=== PATIENT | female | born 1990 ===

== ENCOUNTER → 2020-10-18 | Outpatient (CLI) | payer OTHER ==
[~2020-10-18] MED LIST: MEDR150I
[2020-10-21 15:07] LABS: HPV 16 Negative (Negative); HPV 18 Negative (Negative); HPV OTHER HR TYPES Negative (Negative)
== END | disposition home or self-care (01) ==
LOC: LAB SHORT 16:00
PROVIDERS: Student in an Organized Health Care Education/Training Program
DX: Z12.4 Encounter for screening for malignant neoplasm of cervix (principal)
CPT/HCPCS: 87624; G0145

== ENCOUNTER 2023-02-02 11:29 | Inpatient (IN) | payer OTHER ==
[~2023-02-02] VITALS: Ht 160 cm; Wt 69.7 kg
[2023-02-02] VITALS (9 sets, daily range): BP systolic 70–103; BP diastolic 31–82
[~2023-02-02 11:29] MED LIST changes: +LISI5 PO
[2023-02-02 11:50] LABS: Hematocrit 37.1 % (33.0-51.0); Hemoglobin 12.3 g/dL (11.5-16.0); Mean Corpuscular HGB 30.1 pg (26.0-34.0); Mean Corpuscular HGB Conc 33.2 g/dL (31.5-36.5); Mean Corpuscular Volume 91 fL (80-100); Mean Platelet Volume 8.8 fL (9.1-12.4); Platelet Count 768 K/mm3 (150-400); RDW Coefficient Variation 13.6 % (11.7-14.2); RDW Standard Deviation 46.1 fL (35.1-46.3); Red Blood Cell Count 4.08 M/mm3 (3.80-5.20)
[2023-02-02 12:28] LABS: Albumin, Blood 1.8 g/dL (3.4-5.0); Albumin/Globulin Ratio 0.3 (0.8-1.8); Bilirubin, Total 0.3 mg/dL (0.1-1.0); Bun/Creatinine Ratio 87.8 (12.0-20.0); Calcium, Blood 8.2 mg/dL (8.5-10.1); Creatinine, Blood 1.64 mg/dL (0.40-1.00); Globulin, Blood 5.5 g/dL (2.2-4.0); Potassium, Blood 4.3 mmol/L (3.5-5.5); Total Protein, Blood 7.3 g/dL (6.4-8.2)
[2023-02-02 13:43] LABS: BAND PERCENT MAN 44 % (0-8); BASOPHILS PERCENT MAN 0 % (0-2); EOSINOPHILS PERCENT MAN 0 % (0-6); LYMPHOCYTES ABSOLUTE MAN 2.88 K/mm3 (0.84-5.20); LYMPHOCYTES PERCENT MAN 14 % (21-46); METAMYELOCYTE ABSOLUTE MAN 0.41 K/mm3 (0.00-0.00); METAMYELOCYTE PERCENT MAN 2 % (0-0); MONOCYTES ABSOLUTE MAN 2.88 K/mm3 (0.16-1.47); MONOCYTES PERCENT MAN 14 % (4-13); MYELOCYTE ABSOLUTE MAN 0.61 K/mm3 (0.00-0.00); MYELOCYTE PERCENT MAN 3 % (0-0); SEG NEUTROPHILS PERCENT MAN 23 % (41-73); TOTAL CELLS COUNTED 100
[2023-02-02 23:06] LABS: Source, Urine Foley catheter
[2023-02-02 23:18] LABS: Bilirubin, Urine Neg (Neg); Blood, Urine 2+ (Neg); Glucose Qualitative, Urine Neg (Neg); Ketones, Urine Neg (Neg); Leukocyte Esterase, Urine Neg (Neg); Nitrite, Urine Neg (Neg); Protein, Urine 2+ (Neg); Specific Gravity, Urine 1.015 (1.003-1.022); Urobilinogen, Urine NORM (Normal)
[2023-02-02 23:26] LABS: Appearance, Urine Clear (Clear); Color, Urine Yellow (P-Yellow)
[2023-02-02 23:27] LABS: Amorphous Light (0-Heavy); Bacteria Rare /hpf; Squamous Epithelial Cells Not Seen /hpf (Few); White Blood Cells, Urine 0-2 /hpf (0-5)
--- NOTE | 2023-02-02 23:37 | NUR ---
PT ARRIVES TO ICU 14 FROM OR. S/P COLECTOMY WITH WASHOUT. TWO TIFFANIE DRAINS INTACT. DRAINS SEROUSAINGEOUS DRAINAGE. PT'S TO ROOM. ABLE TO ASSIST WITH QUESTIONS. PT STARTED ON PROPOFOL, AND IS CURRENTLY AT 35 MCG'S/KG/MIN. LEVOPHED STARTED AT 5 MCG'S. LR BOLUS INFUSING. 20/10 POWERGLIDE PRO STARTED IN RIGHT UPPER ARM. LABS DRAWN. PT INTUBATED. PT MAINTAINS OXYGEN SATURATIONS > 90 PERCENT. BLOOD PRESSURES HAVE REMAINED LOW. PENDING INTERVENTIONS. DR ROBERTO MADE AWARE OF PT. DR ROBERTO STATES THAT IF BLOOD PRESSURES DO NOT RESPOND, HE WILL COME IN TO PLACE CENTRAL LINE. WILL REVIEW CHART AND PLAN OF CARE FOR THIS PT.
[2023-02-02 23:40] LABS: Hematocrit 33.5 % (33.0-51.0); Hemoglobin 10.8 g/dL (11.5-16.0); Mean Corpuscular HGB 30.1 pg (26.0-34.0); Mean Corpuscular HGB Conc 32.2 g/dL (31.5-36.5); Mean Corpuscular Volume 93 fL (80-100); Mean Platelet Volume 8.8 fL (9.1-12.4); Platelet Count 712 K/mm3 (150-400); RDW Coefficient Variation 13.9 % (11.7-14.2); RDW Standard Deviation 47.3 fL (35.1-46.3); Red Blood Cell Count 3.59 M/mm3 (3.80-5.20); White Blood Cell Count 33.13 K/mm3 (4.00-11.30)
[2023-02-02 23:42] LABS: Base Excess Venous -14.4 mmol/L; Bicarbonate Venous 14.5 mmol/L (24.0-30.0); PCO2 Venous 24.5 mmHg (38-42)
[2023-02-02 23:58] LABS: Magnesium, Blood 2.1 mg/dL (1.6-2.4)
[2023-02-02 23:59] LABS: Albumin, Blood 1.4 g/dL (3.4-5.0); Albumin/Globulin Ratio 0.3 (0.8-1.8); Bilirubin, Total 0.6 mg/dL (0.1-1.0); Bun/Creatinine Ratio 73.4 (12.0-20.0); Creatinine, Blood 1.39 mg/dL (0.40-1.00); Globulin, Blood 4.2 g/dL (2.2-4.0); Phosphorus, Blood 7.4 mg/dL (2.5-4.9); Potassium, Blood 5.6 mmol/L (3.5-5.5); Total Protein, Blood 5.6 g/dL (6.4-8.2)
[2023-02-03] VITALS (89 sets, daily range): BP systolic 73–111; BP diastolic 50–80
[2023-02-03 00:05] LABS: BAND PERCENT MAN 25 % (0-8); BASOPHILS PERCENT MAN 0 % (0-2); EOSINOPHILS PERCENT MAN 0 % (0-6); LYMPHOCYTES ABSOLUTE MAN 1.98 K/mm3 (0.84-5.20); LYMPHOCYTES PERCENT MAN 6 % (21-46); METAMYELOCYTE ABSOLUTE MAN 1.32 K/mm3 (0.00-0.00); METAMYELOCYTE PERCENT MAN 4 % (0-0); MONOCYTES ABSOLUTE MAN 2.31 K/mm3 (0.16-1.47); MONOCYTES PERCENT MAN 7 % (4-13); MYELOCYTE ABSOLUTE MAN 0.33 K/mm3 (0.00-0.00); MYELOCYTE PERCENT MAN 1 % (0-0); NEUTROPHILS ABSOLUTE MAN 27.16 K/mm3 (1.96-9.15); SEG NEUTROPHILS PERCENT MAN 57 % (41-73); TOTAL CELLS COUNTED 100
--- NOTE | 2023-02-03 04:00 | NUR ---
DR ROBERTO COMES IN TO SEE PT. PLACES CENTRAL LINE TO RIGHT IJ. SAFESET SETUP. LEVOPHED HAS BEEN BEEN INCREASED TO 6 MCG'S. PROPOFOL AT 65 MCG'S/KG/MIN. FENTANYL INCREASED FROM 50 MCG'S/HOUR TO 75 MCG'S PER HOUR. TIFFANIE DRAINS COMPRESSED. WILL CONTINUE TO MONITOR PT.
[2023-02-03 04:34] LABS: Hematocrit 30.4 % (33.0-51.0); Hemoglobin 9.9 g/dL (11.5-16.0); Mean Corpuscular HGB Conc 32.6 g/dL (31.5-36.5); Mean Corpuscular Volume 92 fL (80-100); Mean Platelet Volume 8.7 fL (9.1-12.4); Platelet Count 626 K/mm3 (150-400); RDW Coefficient Variation 13.6 % (11.7-14.2); RDW Standard Deviation 46.5 fL (35.1-46.3); White Blood Cell Count 44.13 K/mm3 (4.00-11.30)
[2023-02-03 04:50] LABS: Bun/Creatinine Ratio 73.1 (12.0-20.0); Calcium, Blood 7.6 mg/dL (8.5-10.1); Creatinine, Blood 0.99 mg/dL (0.40-1.00); Magnesium, Blood 1.9 mg/dL (1.6-2.4); Potassium, Blood 4.6 mmol/L (3.5-5.5)
[2023-02-03 05:06] LABS: BAND PERCENT MAN 40 % (0-8); BASOPHILS PERCENT MAN 0 % (0-2); EOSINOPHILS PERCENT MAN 0 % (0-6); LYMPHOCYTES PERCENT MAN 5 % (21-46); MONOCYTES ABSOLUTE MAN 1.32 K/mm3 (0.16-1.47); MONOCYTES PERCENT MAN 3 % (4-13); MYELOCYTE ABSOLUTE MAN 0.88 K/mm3 (0.00-0.00); MYELOCYTE PERCENT MAN 2 % (0-0); NEUTROPHILS ABSOLUTE MAN 39.71 K/mm3 (1.96-9.15); SEG NEUTROPHILS PERCENT MAN 50 % (41-73); TOTAL CELLS COUNTED 100
--- NOTE | 2023-02-03 07:00 | NUR ---
ASSUMPTION OF CARE PT RECEIVING PROPOFOL 60MCG/KG/MIN, LEVOPHED 7MCG/MIN, FENTANYL 75MCG/HR, AND LR 150ML/HR. SHE REMAINS INTUBATED WITH VENT SETTINGS AC/VC 14/340/5/35%. PT GRIMACES WITH NOXIOUS STIMULI. COUGH/GAG INTACT. LUNGS ARE CLEAR THROUGHOUT. NGT CLAMPED. MIDLINE VON DRESSING C/D/I. PT HAS TWO TIFFANIE DRAINS WITH SMALL AMOUNT OF PINK-TINGED FLUID IN COLLECTION BULBS. SINUS TACH ON MONITOR WITH RATE IN 130S-140S. SBP 90S-100S. MARIE PATENT AND DRAINING YELLOW URINE TO GRAVITY. AT BEDSIDE, UPDATED ON OVERNIGHT EVENTS.
--- NOTE | 2023-02-03 18:07 | NUR ---
SHIFT SUMMARY PT RECEIVING PROPOFOL 45MCG/KG/MIN, FENTANYL 75MCG/HR, AND LR TKO. LEVOPHED IS CURRENTLY ON STANDBY. SHE REMAINS INTUBATED WITH VENT SETTINGS AC/VC 14/340/5/30% AND TOLERATING WELL. SHE OPENS EYES TO VERBAL STIMULI, INTERMITTENTLY NODS/SHAKES HEAD TO ANSWER QUESTIONS AND GRIMACES WITH NOXIOUS STIMULI. LUNGS ARE CLEAR THROUGHOUT. SINUS TACH ON MONITOR WITH RATE IN 130S. SBP 90S, MAP >65. MIDLINE VON C/D/I. TIFFANIE DRAIN DRESSINGS C/D/I, BOTH DRAINING PALE PINK FLUID. NGT TO LIS WITH SMALL AMOUNT OF GREEN OUTPUT. MARIE PATENT AND DRAINING TO GRAVITY.
--- NOTE | 2023-02-03 19:10 | NUR ---
ASSUMPTION OF CARE PT IS INTUBATED VIA ETT, INTACT AND PATENT TO VENT. BILATERAL BREATH SOUNDS PRESENT, OXYGEN SAT 95%. PT IS SEDATED W/PROPOFOL AND FENTANYL. LEVOPHED IS ON SB AT THIS TIME. VON MIDLINE DRESSING IS C/D/I. TIFFANIE EACH W/SMALL AMOUNT OF SEROUS FLUID. MARIE CATH INTACT PATENT AND DRAINING YELLOW URINE. NG TUBE TO ILWS, GREEN BILE OUTPUT NOTED. PT NOTED MOVING HER RIGHT ARM, SBW RESTRAINTS IN PLACE. NO S/S OF ACUTE DISTRESS NOTED AT THIS TIME.
[2023-02-04] VITALS (53 sets, daily range): BP systolic 100–126; BP diastolic 66–84
[2023-02-04 04:28] LABS: Hematocrit 23.5 % (33.0-51.0); Hemoglobin 7.6 g/dL (11.5-16.0); Mean Corpuscular HGB 30.2 pg (26.0-34.0); Mean Corpuscular HGB Conc 32.3 g/dL (31.5-36.5); Mean Corpuscular Volume 93 fL (80-100); Mean Platelet Volume 8.7 fL (9.1-12.4); Platelet Count 426 K/mm3 (150-400); RDW Coefficient Variation 13.5 % (11.7-14.2); RDW Standard Deviation 45.8 fL (35.1-46.3); Red Blood Cell Count 2.52 M/mm3 (3.80-5.20); White Blood Cell Count 29.22 K/mm3 (4.00-11.30)
[2023-02-04 04:47] LABS: Magnesium, Blood 2.6 mg/dL (1.6-2.4)
[2023-02-04 04:58] LABS: Albumin, Blood 1.2 g/dL (3.4-5.0); Albumin/Globulin Ratio 0.3 (0.8-1.8); Bilirubin, Total 0.4 mg/dL (0.1-1.0); Bun/Creatinine Ratio 47.5 (12.0-20.0); Calcium, Blood 7.7 mg/dL (8.5-10.1); Creatinine, Blood 0.74 mg/dL (0.40-1.00); Globulin, Blood 4.1 g/dL (2.2-4.0); Phosphorus, Blood 1.7 mg/dL (2.5-4.9); Potassium, Blood 4.3 mmol/L (3.5-5.5); Total Protein, Blood 5.3 g/dL (6.4-8.2)
--- NOTE | 2023-02-04 05:54 | NUR ---
MIGUEL ROSEY PT CONTINUES TO BE INTUBATED VIA ETT. SHE IS SEDATED W/PROPOFOL AND FENTANYL. NG TUBE IS TO ILWS AND HAS GREEN BILE OUTPUT. GLORIA DRAINS HAD SEROUS DRAINAGE. VON DRESSING REMAINS C/D/I. MARIE CATH INTACT PATENT AND DRAINING. PT CONTINUES TO BE ST ON THE ELECTRIC SYSTEM OPERATOR. BP WNL W/MAP>65. LEVOPHED ON SB AT THIS TIME. PT HAS LUNA AND RESPONDS TO STIMULI.
[2023-02-04 06:16] LABS: BAND PERCENT MAN 12 % (0-8); BASOPHILS ABSOLUTE MAN 0.29 K/mm3 (0.00-0.23); BASOPHILS PERCENT MAN 1 % (0-2); EOSINOPHILS ABSOLUTE MAN 0.29 K/mm3 (0.00-0.68); EOSINOPHILS PERCENT MAN 1 % (0-6); LYMPHOCYTES ABSOLUTE MAN 6.72 K/mm3 (0.84-5.20); LYMPHOCYTES PERCENT MAN 23 % (21-46); METAMYELOCYTE ABSOLUTE MAN 0.58 K/mm3 (0.00-0.00); METAMYELOCYTE PERCENT MAN 2 % (0-0); MONOCYTES ABSOLUTE MAN 0.87 K/mm3 (0.16-1.47); MONOCYTES PERCENT MAN 3 % (4-13); MYELOCYTE ABSOLUTE MAN 0.29 K/mm3 (0.00-0.00); MYELOCYTE PERCENT MAN 1 % (0-0); NEUTROPHILS ABSOLUTE MAN 20.16 K/mm3 (1.96-9.15); SEG NEUTROPHILS PERCENT MAN 57 % (41-73); TOTAL CELLS COUNTED 100
--- NOTE | 2023-02-04 07:00 | NUR ---
ASSUMPTION OF CARE PT RECEIVING PROPOFOL 45MCG/KG/MIN AND FENTANYL 75MCG/HR. LEVOPHED HAS BEEN OFF SINCE YESTERDAY EVENING. SHE REMAINS INTUBATED WITH VENT SETTINGS AC/VC 14/340/5/30%. SHE OPENS EYES TO VERBAL STIMULI, MAKES PURPOSEFUL MOVEMENTS WITH ALL EXTREMITIES. LUNGS ARE CLEAR THROUGHOUT. SMALL AMOUNT OF YELLOW/DEAN ETT SECRETIONS. NGT TO LIS WITH SMALL AMOUNT OF DARK GREEN BILE DRAINING. MIDLLINE VON C/D/I, TIFFANIE DRAINS X2 WITH SMALL AMOUNT OF PINK TINGED OUTPUT. SINUS TACH ON MONITOR WITH RATE IN 110S, BP STABLE WITH MAP >65. MARIE PATENT AND DRAINING TO GRAVITY. COLLINS AT BEDSIDE AND UPDATED ON PT CONDITION.
--- NOTE | 2023-02-04 12:31 | NUR ---
UPDATE/EXTUBATION SEDATION TITRATED DOWN AND OFF AT 0930. PT WAKING UP, ANSWERING QUESTIONS BY NODDING/SHAKING HEAD, FOLLOWING SIMPLE COMMANDS. DR ROBERTO AT BEDSIDE AND CHANGED VENT SETTINGS TO SPONT 10/5. RR 15-24, TV 300S. PT EXTUBATED AT 0958. PT ON RA WITH SPO2 >95%, RR 12-20. PT TOLERATED VERY WELL. AT BEDSIDE FOR COMFORT.
--- NOTE | 2023-02-04 13:09 | NUR ---
UPDATE PT IS ALERT AND ORIENTED. REPORTS FEELING TIRED AND DROWSY AT TIMES. PT REPORTS THROAT DISCOMFORT AND ABDOMINAL PAIN. TRANSITIONED FROM CONTINUOUS FENTANYL GTT TO DILAUDID EXECUTIVE HOUSEKEEPER. PT AND SPOUSE PROVIDED EDUCATION REGARDING EXECUTIVE HOUSEKEEPER AND VERBALIZE UNDERSTANDING. LUNGS ARE CLEAR THROUGHOUT. SHE REMAINS ON RA WITH SPO2 >95% AND DENIES SOB. SINUS TACH ON MONITOR WITH RATE IN 110S, BP STABLE. MARIE PATENT AND DRAINING TO GRAVITY. DR MARAVILLA ROUNDED THIS MORNING. CONTINUE NGT TO LIS. PT MAY HAVE SMALL AMOUNTS OF ICE CHIPS. CLINIMIX STARTED.
--- NOTE | 2023-02-04 18:25 | NUR ---
SHIFT SUMMARY PT RECEIVING CLINIMIX 50ML/HR AND DILAUDID MANAGER TRAFFIC. MANAGER TRAFFIC DOES NOT HAVE CONTINUOUS RATE. SHE WAS EXTUBATED THIS MORNING AT 0958 AND HAS BEEN TOLERATING WELL ON RA. MIDLINE VON REMAINS IN PLACE, DRESSING C/D/I. TWO TIFFANIE DRAINS REMAINS IN PLACE WITH SMALL AMOUNT OF SEROUS DRAINAGE. NGT REMAINS TO LIS WITH GREEN OUTPUT. ABSENT BOWEL TONES. SHE REMAINS IN SINUS TACH WITH RATE 110S-130S, BP STABLE THROUGHOUT THE DAY. MARIE PATENT AND DRAINING TO GRAVITY. AT BEDSIDE MOST OF THE DAY WITH OTHER FAMILY MEMBERS. PT HAS MANAGER TRAFFIC AND CALL LIGHT WITHIN REACH.
--- NOTE | 2023-02-04 20:00 | NUR ---
PT IS ALERT AND ORIENTED X4, EXTUBATED EARLIER TODAY AND ON ROOM AIR W/OXYGEN SAT >95% AT THIS TIME. SHE DENIES ANY DISTRESS OR ACUTE DISCOMFORT. SHE IS ST ON THE PUT IN BEAT ADJUSTER W/BP WNL. SHE HAS A DILAUDID CERTIFIED FLIGHT INSTRUCTOR FOR PAIN MGT. SHE IS AFEBRILE. SHE HAS A MIDLINE INCISION W/A VON DRESSING C/D/I. SHE HAS 2 GLORIA DRAINS DRAINING SMALL AMOUNT OF SEROUS FLUID. HER BS ARE ABSENT, SHE HAS A NG TUBE TO ILWS DRAINING GREEN BILE. PT DENIES NAUSEA AT THIS TIME. SHE HAS A MARIE CATH INTACT PATENT AND DRAINING YELLOW URINE. NO NEEDS OBSERVED OR EXPRESSED BY PT AT THIS TIME.
[2023-02-05] VITALS (17 sets, daily range): BP systolic 114–140; BP diastolic 65–93
[2023-02-05 04:41] LABS: Hematocrit 22.2 % (33.0-51.0); Hemoglobin 7.2 g/dL (11.5-16.0); Mean Corpuscular HGB 30.5 pg (26.0-34.0); Mean Corpuscular HGB Conc 32.4 g/dL (31.5-36.5); Mean Corpuscular Volume 94 fL (80-100); Mean Platelet Volume 8.7 fL (9.1-12.4); NRBC ABSOLUTE 0.04 K/mm3 (0.00-0.02); NRBC Auto 0.2 /100 WBC (0.0-0.2); Platelet Count 359 K/mm3 (150-400); RDW Coefficient Variation 13.3 % (11.7-14.2); Red Blood Cell Count 2.36 M/mm3 (3.80-5.20); White Blood Cell Count 23.46 K/mm3 (4.00-11.30)
--- NOTE | 2023-02-05 05:05 | NUR ---
SHIFT SUMMERY PT HAS HAD NO ACUTE CHANGES OVERNIGHT. SHE CONTINUES TO BE ST ON THE VENEER JOINER W/BP WNL. SHE IS AFEBRILE. DILAUDID TOP DYEING MACHINE LOADER FOR PAIN MGT HAD BEEN ADEQUATE. SHE HAS HAD NO COMPLAINTS OF N/V. NG TUBE CONTINUES TO DRAIN GREEN BILE TO ILWS, PT HAS HAD ICE CHIPS OVERNIGHT AND TOLERATED WELL. GLORIA DRAINS W/MINIMAL SEROUS OUTPUT. MIDLINE VON DRESSING REMAINS C/D/I. PT IS ON 2LNC W/OXYGEN SAT 97%. MARIE CATH INTACT PATENT AND DRAINING YELLOW URINE. NO ACUTE DISTRESS REPORTED FROM PT, WHO REMAINS ALERT AND ORIENTED X4, OR NOTED THIS SHIFT.
[2023-02-05 05:12] LABS: Bun/Creatinine Ratio 22.6 (12.0-20.0); Calcium, Blood 7.9 mg/dL (8.5-10.1); Creatinine, Blood 0.57 mg/dL (0.40-1.00); Magnesium, Blood 2.2 mg/dL (1.6-2.4); Phosphorus, Blood 2.6 mg/dL (2.5-4.9); Potassium, Blood 3.8 mmol/L (3.5-5.5)
[2023-02-05 05:31] LABS: BAND PERCENT MAN 3 % (0-8); BASOPHILS PERCENT MAN 0 % (0-2); EOSINOPHILS PERCENT MAN 0 % (0-6); LYMPHOCYTES ABSOLUTE MAN 3.75 K/mm3 (0.84-5.20); LYMPHOCYTES PERCENT MAN 16 % (21-46); METAMYELOCYTE ABSOLUTE MAN 0.46 K/mm3 (0.00-0.00); METAMYELOCYTE PERCENT MAN 2 % (0-0); MONOCYTES ABSOLUTE MAN 0.23 K/mm3 (0.16-1.47); MONOCYTES PERCENT MAN 1 % (4-13); MYELOCYTE ABSOLUTE MAN 0.46 K/mm3 (0.00-0.00); MYELOCYTE PERCENT MAN 2 % (0-0); NEUTROPHILS ABSOLUTE MAN 18.53 K/mm3 (1.96-9.15); SEG NEUTROPHILS PERCENT MAN 76 % (41-73); TOTAL CELLS COUNTED 100
--- NOTE | 2023-02-05 10:41 | NUR ---
CARE OF PT ASSUMED AT 0700. PT INITIALLY SLEEPING, AROUSES TO VOICE. C/O ABD PAIN 5/10. PT HAS DILAUDID FEEDER CATCHER; 0.2MG Q 10MIN, NO CONTINUOUS. PT HAS MIDLINE DRSG W VON DRAIN, C/D/I. TO TIFFANIE DRAINS TO LEFT ABD W SMALL AMT OF SEROUS DRAINAGE. NGT TO LEFT NARE TO LIS W MODERATE GREEN BILE OUTPUT. PT IS NPO EXCEPT FOR ICE CHIPS. PT DENIES NAUSEA. PT INITIALLY ON 2L VIA N/C, TITRATED DOWN TO 1L. PT DANGLED AT BEDSIDE, UNABLE TO TRANSFER PT TO BED D/T ABD PAIN. DR MARAVILLA CALLED, PRN DILAUDID PUSH ORDERED. 0.5MG DILAUDID GIVEN PRIOR TO BEDBATH, DILAUDID DECREASED PT'S PAIN ALLOWING FOR INCREASED MOBILITY. LUNGS CLEAR BUT DIMINISHED TO BASES. I.S. GIVEN W INSTRUCTIONS. + BLOOD CX GIVEN TO DR ROBERTO THIS AM; PT IS COVERED W ZOSYN. SCD'S ON PT. WILL ATTEMPT TO GET PT OOB TO CHAIR TODAY TOLERATED. TPN TO BE STARTED PER COURT ADVOCATE.
--- NOTE | 2023-02-05 11:15 | NUR ---
DR MARAVILLA IN TO SEE PT. FULL UPDATE GIVEN, INCLUDING +BLOOD CX'S. CLEAR LIQUIDS OKAY PER DR MARAVILLA. NGT TO STAY TO LIS. VON DRAIN DRSG TO BE CHANGED TO SMALLER DRSG. PICC LINE TO BE PLACED FOR TPN, THEN CENTRAL LINE TYO BE DC'D. POSSIBLE CHANGE IN STATUS TO SURGICAL.
--- NOTE | 2023-02-05 13:55 | NUR ---
PT OOB TO CHAIR W OT ASSIST. PT TOLERATED WELL AND SAT UP FOR ABOUT AN HOUR. SBA BACK TO BED.
--- NOTE | 2023-02-05 18:16 | NUR ---
PICC LINE PLACED TODAY, PT TOLERATED PROCEDURE WELL W/O DIFFICULTY. PICC PLACED W/O DIFFICULTY. RIGHT IJ CENTRAL LINE DC'D FOLLOWING HOSPITAL PROCEDURE/POLICY. RIGHT IJ DRSG REMAINS C/D/I. DR MARAVILLA GIVEN UPDATE, PT TRANSFERED TO SURGICAL FLOOR IN STABLE CONDITION. TPN/MANAGER PHARMACEUTICAL SENT WITH PT. NEW SMALLER VON DRSG SENT WITH PT.
--- NOTE | 2023-02-05 18:30 | NUR ---
TRANSFER TO SURGICAL FLOOR PT BROUGHT OVER TO SURGICAL FLOOR FROM ICU, TRANSFERRED TO HER NEW ROOM VIA SLIDER SHEET, ORIENTED TO NEW ROOM AND STAFF. VON DRESSING CHANGED BY THIS RN TO A SMALLER SIZE VON DRESSING. PATIENT HAS NO CONCERNS AT THIS TIME, CALL LIGHT IN REACH.
[2023-02-06] VITALS (7 sets, daily range): BP systolic 124–141; BP diastolic 76–99
[2023-02-06 06:58] LABS: Hematocrit 21.6 % (33.0-51.0); Hemoglobin 6.9 g/dL (11.5-16.0); Mean Corpuscular HGB 30.3 pg (26.0-34.0); Mean Corpuscular HGB Conc 31.9 g/dL (31.5-36.5); Mean Corpuscular Volume 95 fL (80-100); Mean Platelet Volume 8.7 fL (9.1-12.4); NRBC Auto 0.4 /100 WBC (0.0-0.2); Platelet Count 307 K/mm3 (150-400); RDW Standard Deviation 44.3 fL (35.1-46.3); Red Blood Cell Count 2.28 M/mm3 (3.80-5.20); White Blood Cell Count 22.98 K/mm3 (4.00-11.30)
[2023-02-06 07:18] LABS: Albumin, Blood 1.4 g/dL (3.4-5.0); Anion Gap 2 mmol/L (6-16); Blood Urea Nitrogen 10 mg/dL (8-24); Bun/Creatinine Ratio 17.9 (12.0-20.0); CO2, Blood 30 mmol/L (21-32); Calcium, Blood 8.4 mg/dL (8.5-10.1); Chloride, Blood 114 mmol/L (98-108); Creatinine, Blood 0.56 mg/dL (0.40-1.00); Glomerular Filtration Rate 124 (60-); Glucose, Blood 129 mg/dL (70-99); Magnesium, Blood 2.1 mg/dL (1.6-2.4); Phosphorus, Blood 2.8 mg/dL (2.5-4.9); Potassium, Blood 4.2 mmol/L (3.5-5.5); Sodium, Blood 146 mmol/L (136-145); Triglycerides 161 mg/dL (30-140)
[2023-02-06 07:20] LABS: BAND PERCENT MAN 1 % (0-8); BASOPHILS PERCENT MAN 0 % (0-2); EOSINOPHILS PERCENT MAN 0 % (0-6); LYMPHOCYTES ABSOLUTE MAN 2.06 K/mm3 (0.84-5.20); LYMPHOCYTES PERCENT MAN 9 % (21-46); MONOCYTES PERCENT MAN 0 % (4-13); MYELOCYTE ABSOLUTE MAN 0.45 K/mm3 (0.00-0.00); MYELOCYTE PERCENT MAN 2 % (0-0); NEUTROPHILS ABSOLUTE MAN 20.45 K/mm3 (1.96-9.15); SEG NEUTROPHILS PERCENT MAN 88 % (41-73); TOTAL CELLS COUNTED 100
--- NOTE | 2023-02-06 07:24 | NUR ---
SHIFT SUMMARY POD 4 EX LAP W/ OMINECTOMY AND R HEMICOLECTOMY W/OUT OSTOMY. ABD ABCESS, MIDLINE VON C/D/I, TPN AND CREDIT CONTROL ADMINISTRATOR RUNNING TO L UPPER ARM PICC LINE. POWERGLIDE IN R UPPER ARM. MARIE IN PLACE DRAINING YELLOW URINE. PT TOLERATING CL FLUIDS, ALTHOUGH NG TUBE CANISTERS CHANGES 2X THIS SHIFT, NO C/O N/V. TIFFANIE DRAINS DRAINING SANGENOUS FLUIDS W/ MINIMAL TO JP2 AND MODERATE AMT TO JP1. PT CREDIT CONTROL ADMINISTRATOR USED MINIMALLY. PT A&OX4, VERY SWEET SOFT SPOKEN. NO ACUTE CHANGES THIS SHIFT. CALL LIGHT W/IN REACH, PT USES APPROPRIATELY.
--- NOTE | 2023-02-06 19:24 | NUR ---
SHIFT SUMMARY POD 4 EXLAP WITH SMALL BOWEL RESECTION, R NATI COLLECTOMY AND I&D OF ABDOMINAL ABCESSES, A/OX4, ON TELEMETRY AND WAS A LITTLE TACHY THIS SHIFT WHICH SHOWED SOME IMPROVEMENT AFTER RECEIVING 1 UNIT PRBC, LOW GRADE FEVER UNDER 100 DEGREES WHICH ALSO SELF RESOLVED AFTER BLOOD INFUSED. WORKED WITH THERAPY AND WAS UP TO CHAIR BRIEFLY, SHE HAD FAMILY AT THE BEDSIDE T/O THE SHIFT. NO ACUTE EVENTS THIS SHIFT, CALL LIGHT IN REACH.
[2023-02-07 03:57] VITALS: BP 130/90
[2023-02-07 04:59] LABS: BASOPHILS ABSOLUTE AUTO 0.09 K/mm3 (0.00-0.23); BASOPHILS PERCENT AUTO 0 % (0-2); EOSINOPHILS ABSOLUTE AUTO 0.01 K/mm3 (0.00-0.68); EOSINOPHILS PERCENT AUTO 0 % (0-6); Hematocrit 26.4 % (33.0-51.0); Hemoglobin 8.6 g/dL (11.5-16.0); IMMATURE GRAN PERCENT AUTO 5 % (0-1); LYMPHOCYTES ABSOLUTE AUTO 2.92 K/mm3 (0.84-5.20); LYMPHOCYTES PERCENT AUTO 10 % (21-46); MONOCYTES PERCENT AUTO 4 % (4-13); Mean Corpuscular HGB 29.2 pg (26.0-34.0); Mean Corpuscular HGB Conc 32.6 g/dL (31.5-36.5); Mean Platelet Volume 9.5 fL (9.1-12.4); NEUTROPHILS ABSOLUTE AUTO 24.24 K/mm3 (1.96-9.15); NEUTROPHILS PERCENT AUTO 80 % (41-73); NRBC ABSOLUTE 0.08 K/mm3 (0.00-0.02); NRBC Auto 0.3 /100 WBC (0.0-0.2); Platelet Count 298 K/mm3 (150-400); RDW Coefficient Variation 16.8 % (11.7-14.2); RDW Standard Deviation 55.1 fL (35.1-46.3); Red Blood Cell Count 2.95 M/mm3 (3.80-5.20); White Blood Cell Count 30.16 K/mm3 (4.00-11.30)
[2023-02-07 05:08] LABS: Mean Corpuscular Volume 90 fL (80-100)
[2023-02-07 05:11] LABS: Bun/Creatinine Ratio 24.5 (12.0-20.0); Calcium, Blood 8.6 mg/dL (8.5-10.1); Creatinine, Blood 0.49 mg/dL (0.40-1.00); Magnesium, Blood 1.9 mg/dL (1.6-2.4); Potassium, Blood 4.5 mmol/L (3.5-5.5)
--- NOTE | 2023-02-07 07:29 | NUR ---
SHIFT SUMMARY POD 4 EX LAP W/ OMINECTOMY AND R HEMICOLECTOMY AND ABD ABCESS. MIDLINE VON DRESSING INTACT W/ SCANT DRAINAGE SPOTS NOTED. PICC LINE TO L UPPER ARM INFUSING TPN AND MOLECULAR PATHOLOGIST. POWERGLIDE TO R UPPER ARM. TIFFANIE DRAINS TO RLQ AND RUQ DRAINING SEROUS FLUID. NG TUBE IN PLACE TO LOW INTERM. SUCTION DRAINING LARGE AMOUNTS R/T PT CL INTAKE OF WATER/ JUICES. TELE IN PLACE W/ CONTINUED ST@>100. OT DOSE OF LASIX ADMINISTERED THIS AM AND YESTERDAY. A.M. LABS REPORTS WBC JUMPED TO 30.16. PT VERY SWEET AND SOFT SPOKEN. CALL LIGHT W/ IN REACH.
[2023-02-07 08:02] VITALS: BP 121/93
[2023-02-07 14:22] VITALS: BP 127/97
--- NOTE | 2023-02-07 15:36 | NUR ---
SUMMARY: PT IS POD5 EX LAP WITH BOWEL RESECTION. A/O, VSS. PT DID WELL TODAY WITH THERAPY, WALKED IN THE CARTAGENA AND UP TO CHAIR X2. MARIE REMOVED AND IS VOIDING. DR. MARAVILLA REMOVED VON THIS MORNING AND MEPILEX NOW IN PLACE, CDI. TIFFANIE DRAIN DRESSINGS REMOVED AND DRESSED WITH CHG FOAM, GAUZE, AND TAPE. TPN CONTINUES TO INFUSED THROUGH PICC LINE. TOTAL OF 250 ML OUT OF NGT TO LIS. PT REPORTS ONLY TAKING SIPS OF CLEAR LIQ. PT DOES NOT USE BURR FILER OFTEN AND REQUESTS DILAUDID WHEN NEEDING TO WORK WITH THERAPY. NO ACUTE SAFETY CONCERNS.
[2023-02-07 19:24] VITALS: BP 154/98
[2023-02-08 02:21] VITALS: BP 127/93
--- NOTE | 2023-02-08 03:16 | NUR ---
SHIFT SUMMARY Pt POD 5 s/p exploratory laparotomy,R hemicolectomy, drainage of intra-abdominal/pelvic abscesses, small bowel resection, partial omentectomy. pt has had multiple formed bm t/o shift, no n/v. NGT to LIS, aprox 200 brown liquid out this shift. TIFFANIE x's 2 with aprox 30ml out. had c/o heartMD vin order for Protonix 40mg IVP. Dilaudid HAIR STYLIST, pain tolerable. TPN running per emar.Pt states that in general she feels she has "had a backslide" this am, is unable to identify anything in particular other than feeling overwhelmed w/multiple BM's.
[2023-02-08 04:57] LABS: Calcium, Blood 8.4 mg/dL (8.5-10.1); Creatinine, Blood 0.46 mg/dL (0.40-1.00); Phosphorus, Blood 3.7 mg/dL (2.5-4.9); Potassium, Blood 4.4 mmol/L (3.5-5.5)
[2023-02-08 07:46] VITALS: BP 119/90
[2023-02-08 15:06] VITALS: BP 130/92
--- NOTE | 2023-02-08 17:06 | NUR ---
SHIFT SUMMARY PT IS POD#6. NG TUBE REMOVED TODAY. PT HAD BOWEL MOVEMENTS OVERNIGHT, BM'S SLOWING TODAY. PT IS TOLERAGING SIPS OF CLEAR LIQUID. PT SHOWERED TODAY. ABD DRESSING CHANGED, INCISION CLEANSED WITH SALINE. MINIMAL TIFFANIE OUTPUT. PT RESTING IN BED, FAMILY PRESENT FOR SUPPORT.
[2023-02-08 19:25] VITALS: BP 129/98
[2023-02-09 03:25] VITALS: BP 123/90
--- NOTE | 2023-02-09 04:58 | NUR ---
SHIFT SUMMARY PT IS AOX4, TOLERATING SOME SIPS AND ICE CHIPS. REPORTS PASSING FLATUS. ABD IS MILDLY DISTENDED WITH HYPOACTIVE BOWEL TONES. MIDLINE MEDIPORE DRESSING IS C/D/I. TIFFANIE DRAINS X2 WITH SS OUT PUT, DRAINS ARE COMPRESSED AND INTACT. PT IS ABLE TO WALK TO BATHROOM TO VOID W/ SBA ASSIST FOR CORD MANAGEMENT. ENCOURAGED MORE WALKING AND REPOSITIONING. SAW HANDLE ASSEMBLER FOR PAIN MANAGEMENT AND PT IS EDUCATED ON USE. CURRENTLY PAIN RATED 2/10 AND TOLERABLE. PT TO DO THERAPY IN AM. CALL LIGHT IN REACH. WILL REPORT TO DAY RN. VSS.
[2023-02-09 05:05] LABS: BASOPHILS ABSOLUTE AUTO 0.05 K/mm3 (0.00-0.23); BASOPHILS PERCENT AUTO 0 % (0-2); EOSINOPHILS ABSOLUTE AUTO 0.03 K/mm3 (0.00-0.68); EOSINOPHILS PERCENT AUTO 0 % (0-6); Hematocrit 27.7 % (33.0-51.0); Hemoglobin 8.9 g/dL (11.5-16.0); IMMATURE GRAN ABSOLUTE AUTO 0.28 K/mm3 (0.00-0.10); IMMATURE GRAN PERCENT AUTO 1 % (0-1); LYMPHOCYTES ABSOLUTE AUTO 2.31 K/mm3 (0.84-5.20); LYMPHOCYTES PERCENT AUTO 12 % (21-46); MONOCYTES PERCENT AUTO 7 % (4-13); Mean Corpuscular HGB 28.7 pg (26.0-34.0); Mean Corpuscular HGB Conc 32.1 g/dL (31.5-36.5); Mean Corpuscular Volume 89 fL (80-100); Mean Platelet Volume 9.6 fL (9.1-12.4); NEUTROPHILS PERCENT AUTO 80 % (41-73); Platelet Count 373 K/mm3 (150-400); RDW Coefficient Variation 15.8 % (11.7-14.2); RDW Standard Deviation 50.4 fL (35.1-46.3); White Blood Cell Count 19.47 K/mm3 (4.00-11.30)
--- NOTE | 2023-02-09 06:10 | NUR ---
dressing changed, ss drainage to lower midline site. dressing changed and replaced with abd pad and tape. biopatch to drain site.
[2023-02-09 07:25] VITALS: BP 145/82
[2023-02-09 15:06] VITALS: BP 147/97
--- NOTE | 2023-02-09 17:50 | NUR ---
SHIFT SUMMARY PT HAS BEEN OOB INDEPENDENTLY TODAY. PAIN MANAGED WITH PO PAIN MEDICATION, MINIATURE SET DESIGNER WEANED. PT IS TOLERATING SOME CLEAR LIQUIDS. SHE HAS HAD BOWEL MOVEMENTS AND IS PASSING FLATUS TODAY. PT RESTING IN BED, CALL LIGHT WITHIN REACH.
[2023-02-09 20:34] VITALS: BP 128/94
[2023-02-10 04:46] VITALS: BP 122/87
[2023-02-10 04:56] LABS: BASOPHILS ABSOLUTE AUTO 0.03 K/mm3 (0.00-0.23); BASOPHILS PERCENT AUTO 0 % (0-2); EOSINOPHILS ABSOLUTE AUTO 0.05 K/mm3 (0.00-0.68); EOSINOPHILS PERCENT AUTO 0 % (0-6); Hematocrit 26.2 % (33.0-51.0); Hemoglobin 8.5 g/dL (11.5-16.0); IMMATURE GRAN ABSOLUTE AUTO 0.15 K/mm3 (0.00-0.10); IMMATURE GRAN PERCENT AUTO 1 % (0-1); LYMPHOCYTES ABSOLUTE AUTO 2.36 K/mm3 (0.84-5.20); LYMPHOCYTES PERCENT AUTO 15 % (21-46); MONOCYTES ABSOLUTE AUTO 1.32 K/mm3 (0.16-1.47); MONOCYTES PERCENT AUTO 8 % (4-13); Mean Corpuscular HGB 28.7 pg (26.0-34.0); Mean Corpuscular HGB Conc 32.4 g/dL (31.5-36.5); Mean Corpuscular Volume 89 fL (80-100); Mean Platelet Volume 9.2 fL (9.1-12.4); NEUTROPHILS ABSOLUTE AUTO 11.89 K/mm3 (1.96-9.15); NEUTROPHILS PERCENT AUTO 75 % (41-73); Platelet Count 417 K/mm3 (150-400); RDW Coefficient Variation 15.4 % (11.7-14.2); RDW Standard Deviation 49.4 fL (35.1-46.3); Red Blood Cell Count 2.96 M/mm3 (3.80-5.20)
[2023-02-10 05:13] LABS: Bun/Creatinine Ratio 20.8 (12.0-20.0); Calcium, Blood 8.4 mg/dL (8.5-10.1); Creatinine, Blood 0.48 mg/dL (0.40-1.00); Potassium, Blood 4.2 mmol/L (3.5-5.5)
--- NOTE | 2023-02-10 06:05 | NUR ---
SHIFT SUMMARY UP TO BATHROOM HAVING SMALL BM'S, AND PASSING FLATUS. IV ABX INFUSED. PAIN MANAGED ON ORAL PAIN MEDICATION. DENIES N/V. TOLERATING APPLE SAUCE. ABD MILDLY DISTENDED. BOWEL TONES PRESENT. MIDLINE DRESSING WITH SCANT SS DRAINAGE. JPX2 WITH MINIMAL SS OUTPUT, COMPRESSED AND DRESSING C/D/I. VSS. PLAN TO ADV. NICOLE.
[2023-02-10 09:10] VITALS: BP 119/85
[2023-02-10 16:50] VITALS: BP 121/77
[2023-02-10 19:21] VITALS: BP 131/95
[2023-02-11 02:45] VITALS: BP 132/83
[2023-02-11 07:20] VITALS: BP 131/82
--- NOTE | 2023-02-11 07:42 | NUR ---
SUMMARY NO CHANGES NOTED THROUGH THE NIGHT, VSS, ON RA, INDEPENDENT TO BATHROOM, PAIN MANAGED PER EMAR PRN, VOIDING WNL, PASSING FLATUS, DENIES NAUSEA, DRSG INTACT, CALL LIGHT IN REACH.
[2023-02-11 16:38] VITALS: BP 133/89
--- NOTE | 2023-02-11 19:37 | NUR ---
SHIFT SUMMARY PT HAS HAD BETTER PAIN MGMT SINCE SWITCHING TO 1 PERCOCET, REPORTED PAIN 1/10 FOLLOWING ADMINISTRATION. MIDLINE INCISION DRESSING AND TIFFANIE DRESSINGS CHANGED W/MIN OUTPUT NOTED ON CLEAN DRESSING. TIFFANIE #1 WITH 20MOL SEROUS FLUID, TIFFANIE#2 WITH 20ML PURULENT DRAINAGE OUT-MD AWARE. AFEBRILE. SALINE LOCKED OTHER THAN FOR ABX. TOLERATING FULL LIQUID WITH NO INCREASED PAIN, DISTENTION, N/V. AMBULATED IN HALLWAY X'S 3 USING FWW, UP TO SHOWER.
[2023-02-11 20:09] VITALS: BP 129/90
[2023-02-12 03:36] VITALS: BP 122/89
[2023-02-12 04:55] LABS: BASOPHILS ABSOLUTE AUTO 0.05 K/mm3 (0.00-0.23); BASOPHILS PERCENT AUTO 0 % (0-2); EOSINOPHILS ABSOLUTE AUTO 0.05 K/mm3 (0.00-0.68); EOSINOPHILS PERCENT AUTO 0 % (0-6); Hematocrit 25.5 % (33.0-51.0); Hemoglobin 8.1 g/dL (11.5-16.0); IMMATURE GRAN ABSOLUTE AUTO 0.08 K/mm3 (0.00-0.10); IMMATURE GRAN PERCENT AUTO 0 % (0-1); LYMPHOCYTES ABSOLUTE AUTO 2.43 K/mm3 (0.84-5.20); LYMPHOCYTES PERCENT AUTO 13 % (21-46); MONOCYTES ABSOLUTE AUTO 1.29 K/mm3 (0.16-1.47); MONOCYTES PERCENT AUTO 7 % (4-13); Mean Corpuscular HGB 28.2 pg (26.0-34.0); Mean Corpuscular HGB Conc 31.8 g/dL (31.5-36.5); Mean Corpuscular Volume 89 fL (80-100); Mean Platelet Volume 9.6 fL (9.1-12.4); NEUTROPHILS PERCENT AUTO 79 % (41-73); Platelet Count 568 K/mm3 (150-400); RDW Coefficient Variation 15.3 % (11.7-14.2); RDW Standard Deviation 49.4 fL (35.1-46.3); Red Blood Cell Count 2.87 M/mm3 (3.80-5.20)
--- NOTE | 2023-02-12 06:43 | NUR ---
SUMMARY POD #10 PT RESTING QUIETLY IN BED, PAIN MANAGED PER EMAR, EMESIS X1 OVER NIGHT, POSSIBLY DUE TO PAIN MEDS. VSS, ON RA, PT REPORTED 1 FORMED BM, VOIDING WNL, DRSG'S C/D/I, PT ENCOURAGED TO USE FLUTTER/INCENTIVE SPIROMETER. WBC OF 18.3, PROCAL 0.67 NOTED THIS AM, WCTM & REPORT TO DAY RN, CALL LIGHT IN REACH.
[2023-02-12 07:23] VITALS: BP 131/90
--- NOTE | 2023-02-12 09:12 | NUR ---
PT TO CT.
[2023-02-12 16:32] VITALS: BP 148/90
--- NOTE | 2023-02-12 16:58 | NUR ---
SUMMARY PT HAD CT THIS AM. DR MARAVILLA IN TO DISCUSS RESULTS WITH PT. PT'S DIET CHANGED TO CLEAR LIQUIDS. PT HAVING LIQUID BMS. TIFFANIE 2 DRAINING BROWN, FOUL SMELLING DRAINAGE. TIFFANIE 1 DRAINING SMALL AMOUNT SS FLUID. DRESSING TO ABD CDI. PT HAD ONE EPISODE EMESIS THIS SHIFT. AMBULATED IN HALLS, SAT UP IN CHAIR AND GETS UP INDEPENDENTLY TO RESTROOM. CALL LIGHT IN REACH.
[2023-02-12 19:58] VITALS: BP 119/81
[2023-02-13 04:07] VITALS: BP 134/94
--- NOTE | 2023-02-13 04:24 | NUR ---
SHIFT SUMMARY POD 11 EX LAP PT ABLE TO REST T/O NIGHT. PT STATES PAIN WAS MANAGED WELL, PER EMAR. DENIES ANY N/V TONIGHT. AMBULATING TO THE BATHROOM. VOIDING, NO BOWEL MOVEMENT TONIGHT. PT STATES PASSING GAS. DRESSING TO ABD C/D/I. TIFFANIE 1 DRAINING SMALL AMOUNT OF SEROSANGIUNEOUS FLUID, TIFFANIE 2 DRAINING PURULENT BROWN TINGED FLUID. NO OTHER CONCERNS AT THIS TIME. CALL LIGHT WITHIN REACH.
[2023-02-13 04:53] LABS: Albumin, Blood 1.6 g/dL (3.4-5.0); Anion Gap 6 mmol/L (6-16); Blood Urea Nitrogen 10 mg/dL (8-24); Bun/Creatinine Ratio 20.4 (12.0-20.0); CO2, Blood 26 mmol/L (21-32); Calcium, Blood 8.2 mg/dL (8.5-10.1); Chloride, Blood 107 mmol/L (98-108); Creatinine, Blood 0.49 mg/dL (0.40-1.00); Glomerular Filtration Rate 128 (60-); Glucose, Blood 130 mg/dL (70-99); Phosphorus, Blood 3.7 mg/dL (2.5-4.9); Prealbumin, Blood 15.5 mg/dL (20.0-40.0); Sodium, Blood 139 mmol/L (136-145); Triglycerides 191 mg/dL (30-140)
[2023-02-13 07:58] VITALS: BP 133/85
--- NOTE | 2023-02-13 14:41 | NUR ---
DR MARAVILLA IN TO SEE PT.
[2023-02-13 15:03] VITALS: BP 130/92
--- NOTE | 2023-02-13 18:35 | NUR ---
SUMMARY NO ACUTE CHANGES T/O SHIFT. PT TOLERATING SMALL AMOUNTS OF CLEARS. APPETITE POOR. TPN INFUSING PER ORDERS. PT INDEPENDENT IN ROOM AND AMBULATED IN CARTAGENA WITH SPOUSE THIS SHIFT. DR MARAVILLA CHANGED PT'S ABDOMINAL DRESSING THIS AFTERNOON. CALL LIGHT IN REACH.
[2023-02-13 20:00] VITALS: BP 124/88
--- NOTE | 2023-02-14 05:23 | NUR ---
ALERT, VSS, IN MILD PAIN RELIEVED BY ANALGESIA. RESPS EVEN AND UNLABORED. AMBULATING TO RESTROOM WELL. PINK WARM & DRY TO TOUCH. PULSES/PERFUSION WNL. ABD SOFT, TPN MAINTAINED. VDG WELL, SMALL BM IN AM. TIFFANIE DRAIN #2 DRAINING BILIOUS DRAINAGE. ABD DRSG D & I. POWERPICC PATENT.
[2023-02-14 06:00] VITALS: BP 121/81
[2023-02-14 07:14] VITALS: BP 128/84
[2023-02-14 14:19] VITALS: BP 122/86
--- NOTE | 2023-02-14 19:17 | NUR ---
SUMMARY: PT IS POD 12 NATI COLECTOMY. NO ACUTE CHANGE TODAY. VSS, A/O, PT ANXIOUS TODAY. GIVEN ATIVAN X1, PT REPORTS FEELS LESS ANXIOUS TONIGHT. PSYCH CONSULT SENT. 1 PERCOCET SEEMS TO BE MANAGING PAIN. PT HAD BM TODAY, AMBULATORY IN ROOM. TPN TO RUN AT 0400 TONIGHT, SEE ORDER. TOTAL OF 60ML OUT OF TIFFANIE DRAINS TODAY, OUTPUT IS GREEN/BROWN. NO ACUTE SAFETY CONCERNS, REPORT PASSED TO NOC SADIA MCBRIDE.
[2023-02-14 19:33] VITALS: BP 116/80
[2023-02-15 05:06] VITALS: BP 121/86
[2023-02-15 05:24] LABS: BASOPHILS ABSOLUTE AUTO 0.05 K/mm3 (0.00-0.23); BASOPHILS PERCENT AUTO 0 % (0-2); EOSINOPHILS ABSOLUTE AUTO 0.03 K/mm3 (0.00-0.68); EOSINOPHILS PERCENT AUTO 0 % (0-6); Hematocrit 27.1 % (33.0-51.0); Hemoglobin 8.5 g/dL (11.5-16.0); IMMATURE GRAN ABSOLUTE AUTO 0.04 K/mm3 (0.00-0.10); IMMATURE GRAN PERCENT AUTO 0 % (0-1); LYMPHOCYTES ABSOLUTE AUTO 2.23 K/mm3 (0.84-5.20); LYMPHOCYTES PERCENT AUTO 18 % (21-46); MONOCYTES ABSOLUTE AUTO 1.08 K/mm3 (0.16-1.47); MONOCYTES PERCENT AUTO 9 % (4-13); Mean Corpuscular HGB 28.1 pg (26.0-34.0); Mean Corpuscular HGB Conc 31.4 g/dL (31.5-36.5); Mean Corpuscular Volume 89 fL (80-100); Mean Platelet Volume 8.7 fL (9.1-12.4); NEUTROPHILS ABSOLUTE AUTO 9.26 K/mm3 (1.96-9.15); NEUTROPHILS PERCENT AUTO 73 % (41-73); Platelet Count 677 K/mm3 (150-400); RDW Coefficient Variation 15.3 % (11.7-14.2); RDW Standard Deviation 49.3 fL (35.1-46.3); Red Blood Cell Count 3.03 M/mm3 (3.80-5.20); White Blood Cell Count 12.69 K/mm3 (4.00-11.30)
--- NOTE | 2023-02-15 05:30 | NUR ---
SHIFT SUMMARY PT ALERT AND PLEASANT, STATES COMFORTABLE WITH PRN PERCOCET, REQUESTED ATIVAN AT HS. AMBULATES WELL TO RESTROOM. VSS, RESPS EVEN & UNLABORED, PINK WARM & DRY TO YOUCH, PULSES STRONG, PERFUSION BRISK. PO FLUIDS WELL, ABDOMEN SOFT, BS ACTIVE, BM X 1.TPN INFUSING PER ORDER.VOIDING WELL. MIDLINE ABD INCISIONAPPROXIMATED WITH RAFAEL IN SITU, NO INCREASED REDNESS OR SWELLING. DRSG CHANGE DONE FOR SM AMT SEROSAND DRAINAGE. TIFFANIE DRAINS WITH
[2023-02-15 06:56] LABS: C-REACTIVE PROTEIN, EXT RANGE 2.13 mg/dL (0.000-0.300)
[2023-02-15 06:57] LABS: Bun/Creatinine Ratio 17.6 (12.0-20.0); Creatinine, Blood 0.51 mg/dL (0.40-1.00); Phosphorus, Blood 3.9 mg/dL (2.5-4.9); Potassium, Blood 4.2 mmol/L (3.5-5.5)
[2023-02-15 07:25] VITALS: BP 125/91
[2023-02-15 16:36] VITALS: BP 127/83
--- NOTE | 2023-02-15 19:14 | NUR ---
SHIFT SUMMARY PT ADVANCED TOLERATED FOR LUNCH, PT TOLERATED TURKEY SANDWICH W/O INCREASED PAIN N/V. PT DID HAVE 1 SOFT BM WITH A REDDISH TINGE AND BITS OF WHAT APPEARED TO BE UNDIGESTED [place], DID NOT APPEAR TO BE SABIHA BLOOD, MD NOTIFIED NO NEW ORDERES. PT PAIN WELL MANAGED WITH 2.5MG PERCOCET. 0.5MG ATIVAN FOR ANXIETY TWICE THIS SHIFT. TIFFANIE 1 W/SEROUS FLUID, TIFFANIE 2 WITH BROWNISH PURULENT DRAINAGE. DRESSING CHANGED, TIFFANIE SPONGES ON TIFFANIE LINES. MIDLINE INCISION AND TIFFANIE LINES X'S 2 COVERED WITH TIFFANIE, SECURED WITH 3 PIECES OF TAPE HORIZONTALY. PT TOLERATED WELL
[2023-02-15 19:35] VITALS: BP 116/78
[2023-02-16 03:56] VITALS: BP 119/86
[2023-02-16 05:56] LABS: Magnesium, Blood 2.1 mg/dL (1.6-2.4)
[2023-02-16 05:57] LABS: Calcium, Blood 9.2 mg/dL (8.5-10.1); Creatinine, Blood 0.48 mg/dL (0.40-1.00); Phosphorus, Blood 3.9 mg/dL (2.5-4.9)
--- NOTE | 2023-02-16 06:36 | NUR ---
PT TO CT AT 0615 PER STRETCHER WITH [employer] [employer] ACTIVITIES DIRECTOR.
--- NOTE | 2023-02-16 07:16 | NUR ---
SHIFT SUMMARY PT SLEPT WELL OVERNIGHT, VSS, PAIN CONTROLLED BY ANALGESIA. RESPS EVEN AND UNLABORED, PINK WARM & DRY TO TOUCH. ABD SL DISTENDED BUT SOFT. BS ACTIVE. PO FLUIDS WELL, WITH SMALL BITES OF SOLIDS. VOIDING WELL. POWERPICC PATENT WITH TPN AND IVF. ABD INCISION COVERED WITH DRY DRESSING. MINIMAL DRAINAGE TO TIFFANIE DRAINS. PT TO CT THIS MORNING.
[2023-02-16 07:32] VITALS: BP 123/81
[2023-02-16 14:23] VITALS: BP 112/85
--- NOTE | 2023-02-16 15:31 | NUR ---
SHIFT SUMMARY PT HAD RAFAEL AND TIFFANIE #[address] MARAVILLA, EXUDRY DRESSING PLACED OVER MIDLINE INCISION. TPN TO BE DISCONTINUED AFTER THIS BAG FINISHES INFUSING. ABX DC'D. PT TOLERATING 25% ON MEALS THIS SHIFT. VOIDING W/O DIFFICULTY. PICC LINE DRESSING CHANGED. PAIN MANAGED WITH 1 PERCOCET AND TORADOL THIS SHIFT. HAS NOT REQUIRED MEDICATION FOR ANXIETY DAY SHIFT. PLAN TO CONTINUE DRAIN # 2 OUTPUT THROUGH WEEKEND, MIN PURULENT OUTPUT THIS SHIFT.
--- NOTE | 2023-02-16 17:49 | NUR ---
SHIFT SUMMARY ASSUMED CARE AT 1600 FROM SUMAN MCCULLOUGH. PATIENT IS AOX4 FINISHING UP LAST BAG OF TPN AND WILL BE SALINE LOCKED. DENIES PAIN, REPORTS BM AND PASSING FLATUS TODAY. TOLERATING PO INTAKE. MIDLINE DRESSING WITH SMALL SS DRAINAGE, TIFFANIE DRAIN WITH SMALL AMOUNT OF SANG OUTPUT. VSS, AMBULATING IN CARTAGENA. CALL LIGHT IN REACH.
[2023-02-16 20:34] VITALS: BP 122/68
[2023-02-17 02:28] VITALS: BP 119/79
[2023-02-17 06:25] LABS: BASOPHILS ABSOLUTE AUTO 0.02 K/mm3 (0.00-0.23); BASOPHILS PERCENT AUTO 0 % (0-2); EOSINOPHILS ABSOLUTE AUTO 0.09 K/mm3 (0.00-0.68); EOSINOPHILS PERCENT AUTO 1 % (0-6); Hemoglobin 8.7 g/dL (11.5-16.0); IMMATURE GRAN ABSOLUTE AUTO 0.03 K/mm3 (0.00-0.10); IMMATURE GRAN PERCENT AUTO 0 % (0-1); LYMPHOCYTES ABSOLUTE AUTO 2.38 K/mm3 (0.84-5.20); LYMPHOCYTES PERCENT AUTO 31 % (21-46); MONOCYTES ABSOLUTE AUTO 0.84 K/mm3 (0.16-1.47); MONOCYTES PERCENT AUTO 11 % (4-13); Mean Corpuscular HGB 29.1 pg (26.0-34.0); Mean Corpuscular HGB Conc 32.2 g/dL (31.5-36.5); Mean Corpuscular Volume 90 fL (80-100); Mean Platelet Volume 8.7 fL (9.1-12.4); NEUTROPHILS ABSOLUTE AUTO 4.38 K/mm3 (1.96-9.15); NEUTROPHILS PERCENT AUTO 57 % (41-73); Platelet Count 766 K/mm3 (150-400); RDW Standard Deviation 51.7 fL (35.1-46.3); Red Blood Cell Count 2.99 M/mm3 (3.80-5.20); White Blood Cell Count 7.74 K/mm3 (4.00-11.30)
[2023-02-17 07:06] LABS: Bun/Creatinine Ratio 23.2 (12.0-20.0); Creatinine, Blood 0.52 mg/dL (0.40-1.00); Magnesium, Blood 2.2 mg/dL (1.6-2.4); Phosphorus, Blood 3.9 mg/dL (2.5-4.9); Potassium, Blood 4.5 mmol/L (3.5-5.5)
[2023-02-17 07:21] VITALS: BP 127/85
--- NOTE | 2023-02-17 09:00 | NUR ---
SUMMARY WBC DECREASED. NO C/O.
[2023-02-17 14:43] VITALS: BP 135/78
--- NOTE | 2023-02-17 18:24 | NUR ---
SHIFT SUMMARY PAIN HAS BEEN MANAGED WITH PO PAIN MEDICATION. PT HAS BEEN OOB INDEPENDENTLY TODAY. SHE IS TOLERATING SOME PO. PT IN ROOM, CALL LIGHT WITHIN REACH.
[2023-02-17 18:44] VITALS: BP 127/82
[2023-02-18 03:04] VITALS: BP 121/76
[2023-02-18 07:36] VITALS: BP 122/78
--- NOTE | 2023-02-18 07:52 | NUR ---
SUMMARY PLANS FOR DISCHARGE HOME SUNDAY.
--- NOTE | 2023-02-18 12:00 | NUR ---
DRESSING CHANGED AFTER SHOWER MIDLINE INCISION APPEARS TO BE HEALING, SMALL AREA OF INCISIONAL GAPPING TOWARD THE LOWER PORTION OF THE INCISION, PER PT DR. MARAVILLA IS AWARE, MEDIPORE DRESSING PLACED. LUQ TIFFANIE REMOVAL SITE HAS SCANT PURULENT DRAINAGE, BANDAID CHANGED. DRAIN GAUZE PLACED AROUND LLQ DRAIN SITE.
[2023-02-18 15:29] VITALS: BP 123/87
--- NOTE | 2023-02-18 17:26 | NUR ---
SHIFT SUMMARY PT HAS BEEN TRANSITIONED TO TYLENOL FOR PAIN MANAGEMENT, TOLERATING WELL. PT IS INDEPENDENT IN THE ROOM. SHE IS TOLERATING PO. PT SHOWERED TODAY.
[2023-02-18 19:24] VITALS: BP 120/81
[2023-02-19 03:21] VITALS: BP 118/86
[2023-02-19 07:09] VITALS: BP 116/84
[2023-02-19 07:34] LABS: BASOPHILS ABSOLUTE AUTO 0.04 K/mm3 (0.00-0.23); BASOPHILS PERCENT AUTO 1 % (0-2); EOSINOPHILS ABSOLUTE AUTO 0.07 K/mm3 (0.00-0.68); EOSINOPHILS PERCENT AUTO 1 % (0-6); Hematocrit 28.5 % (33.0-51.0); Hemoglobin 9.1 g/dL (11.5-16.0); IMMATURE GRAN ABSOLUTE AUTO 0.03 K/mm3 (0.00-0.10); IMMATURE GRAN PERCENT AUTO 0 % (0-1); LYMPHOCYTES PERCENT AUTO 38 % (21-46); MONOCYTES ABSOLUTE AUTO 0.72 K/mm3 (0.16-1.47); MONOCYTES PERCENT AUTO 9 % (4-13); Mean Corpuscular HGB 28.5 pg (26.0-34.0); Mean Corpuscular HGB Conc 31.9 g/dL (31.5-36.5); Mean Corpuscular Volume 89 fL (80-100); Mean Platelet Volume 8.3 fL (9.1-12.4); NEUTROPHILS ABSOLUTE AUTO 4.09 K/mm3 (1.96-9.15); NEUTROPHILS PERCENT AUTO 51 % (41-73); Platelet Count 786 K/mm3 (150-400); RDW Coefficient Variation 15.9 % (11.7-14.2); RDW Standard Deviation 51.6 fL (35.1-46.3); Red Blood Cell Count 3.19 M/mm3 (3.80-5.20); White Blood Cell Count 7.95 K/mm3 (4.00-11.30)
[2023-02-19 07:55] LABS: Albumin, Blood 2.4 g/dL (3.4-5.0); Albumin/Globulin Ratio 0.4 (0.8-1.8); Bilirubin, Total 0.3 mg/dL (0.1-1.0); Bun/Creatinine Ratio 22.2 (12.0-20.0); C-REACTIVE PROTEIN, EXT RANGE 1.46 mg/dL (0.000-0.300); Calcium, Blood 9.1 mg/dL (8.5-10.1); Creatinine, Blood 0.54 mg/dL (0.40-1.00); Globulin, Blood 5.9 g/dL (2.2-4.0); Potassium, Blood 4.2 mmol/L (3.5-5.5); Prealbumin, Blood 34.3 mg/dL (20.0-40.0); Total Protein, Blood 8.3 g/dL (6.4-8.2)
--- NOTE | 2023-02-19 08:17 | NUR ---
SUMMARY PT MED X 2 THIS SHIFT FOR PAIN AND X 1 FOR ANXIETY.SLEPT QUIETLY BETWEEN DOSING.LABS DRAWN PER DAY RN THIS AM.
[2023-02-19 14:27] VITALS: BP 124/82
--- NOTE | 2023-02-19 18:20 | NUR ---
SHIFT SUMMARY PT HAS DONE WELL T/O SHIFT. DRESSING CHANGED BY MD, SMALL OPEN AREA AT BOTTOM OF INCISION, NO NEW INTERVENTIONS. SMALL AMT SS DRAINAGE PRESENT ON DRESSING WHEN CHANGED. TIFFANIE #2 REMOVED BY MD, SITE COVERED WITH BANDAID. PT TOLERATING REGULAR DIET WITH NO N/V, VOIDING W/O DIFFICULTY. PT MEDICATED ONCE WITH TORADOL AND ONCE WITH 0.5MG DILAUDID (PRE-MEDICATED FOR DRAIN REMOVAL). PLAN FOR DC HOME TOMORROW.
[2023-02-19 19:22] VITALS: BP 122/77
[2023-02-20 04:47] VITALS: BP 117/76
--- NOTE | 2023-02-20 06:22 | NUR ---
PT VSS T/O NIGHT. DRESSINGS CDI. PAIN MGD W/1 PERCOCET W/REP RELIEF. PT NICOLE REG PO, DENIED N/V, REP +FLATUS AND BM; STOOL MORE FORMED THIS AM, IS VOIDING URINE W/O DIFFICULTY. PT AMB INDEP IN ROOM, NICOLE WELL. PT REP EAGER TO D/C HOME, BUT FEELS SOMEWHAT ANXIOUS WELL. SUPPORT AND EDUCATION PROVIDED.
[2023-02-20 07:31] VITALS: BP 120/77
[2023-02-20] MEDS ORDERED: IBUP600 PO (11:56)
[2023-02-20] MEDS ORDERED: ACET500 PO (11:56)
[2023-02-20] MEDS ORDERED: OXAYDO5 M1 PO (11:57)
--- NOTE | 2023-02-20 12:52 | NUR ---
DISCHARGE PT DISCHARGED HOME FROM UNIT AT APROX 1237. PT GIVEN WRITTEN AND VERBAL DISCHARGE INSTRUCTIONS AND VERBALIZED UNDERSTANDING. DR MARAVILLA IN ROOM THIS AM TO CHANGE DRESSING, EXUDRY WITH SMALL AMT TAPE, BANDAID TO SITE. PICC LINE REMOVED, LENGTH REMOVED CONSISTENT W/LENGTH INSERTED. NEW RX'S SENT TO PHARMACY BY DR MARAVILLA, FAMILY CONFIRMED THAT THEY HAD PICKED UP RX'S.
== END 2023-02-20 12:26 | disposition home or self-care (01) | DRG 853 ==
LOC: ER 11:29 → SURS 15:08 → ICUE 15:08 → ER 18:15 → ICUE 22:12 → SURS 02-05 18:38
PROVIDERS: Internal Medicine Critical Care Medicine; Physician Assistant; ADMIT Surgery
PROC: 0W9G0ZX Drainage of Peritoneal Cavity, Open Approach, Diagnostic (ICD-10-PCS; 2023-02-02)
PROC: 5A1935Z Respiratory Ventilation, Less than 24 Consecutive Hours (ICD-10-PCS; 2023-02-02)
PROC: 0BH17EZ Insertion of Endotracheal Airway into Trachea, Via Natural or Artificial Opening (ICD-10-PCS; 2023-02-02)
PROC: 0DH67UZ Insertion of Feeding Device into Stomach, Via Natural or Artificial Opening (ICD-10-PCS; 2023-02-02)
PROC: 3E0436Z Introduction of Nutritional Substance into Central Vein, Percutaneous Approach (ICD-10-PCS; 2023-02-02)
PROC: 3E033XZ Introduction of Vasopressor into Peripheral Vein, Percutaneous Approach (ICD-10-PCS; 2023-02-02)
PROC: 02HV33Z Insertion of Infusion Device into Superior Vena Cava, Percutaneous Approach (ICD-10-PCS; 2023-02-02)
PROC: 0DB80ZZ Excision of Small Intestine, Open Approach (ICD-10-PCS; principal; 2023-02-02 15:00)
PROC: 0DTF0ZZ Resection of Right Large Intestine, Open Approach (ICD-10-PCS; 2023-02-02 15:00)
PROC: 0DBU0ZZ Excision of Omentum, Open Approach (ICD-10-PCS; 2023-02-02 15:00)
PROC: 0WQF0ZZ Repair Abdominal Wall, Open Approach (ICD-10-PCS; 2023-02-02 15:00)
PROC: 02H633Z Insertion of Infusion Device into Right Atrium, Percutaneous Approach (ICD-10-PCS; 2023-02-03)
PROC: 30233N1 Transfusion of Nonautologous Red Blood Cells into Peripheral Vein, Percutaneous Approach (ICD-10-PCS; 2023-02-06)
DX: A41.9 Sepsis, unspecified organism (principal); J96.00 Acute respiratory failure, unspecified whether with hypoxia or hypercapnia; K63.1 Perforation of intestine (nontraumatic); K65.9 Peritonitis, unspecified; R65.21 Severe sepsis with septic shock; K65.1 Peritoneal abscess; N17.9 Acute kidney failure, unspecified; E87.20 Acidosis, unspecified; E87.0 Hyperosmolality and hypernatremia; D62 Acute posthemorrhagic anemia; K91.89 Other postprocedural complications and disorders of digestive system; I10 Essential (primary) hypertension; E03.9 Hypothyroidism, unspecified; K42.9 Umbilical hernia without obstruction or gangrene; F41.9 Anxiety disorder, unspecified; F32.A Depression, unspecified; Z90.79 Acquired absence of other genital organ(s); Z79.811 Long term (current) use of aromatase inhibitors; Z98.890 Other specified postprocedural states; Z90.11 Acquired absence of right breast and nipple; Z98.51 Tubal ligation status; B96.1 Klebsiella pneumoniae [K. pneumoniae] as the cause of diseases classified elsewhere; Y83.8 Other surgical procedures as the cause of abnormal reaction of the patient, or of later complication, without mention of misadventure at the time of the procedure
CPT/HCPCS: 36415; 36430; 36556; 36569; 71045; 74176; 74177; 80048; 80053; 80069; 81001; 82330; 82728; 82803; 82947; 83540; 83550; 83690; 83735; 84100; 84134; 84145; 84295; 84478; 85025; 86140; 86850; 86900; 86901; 86923; 87040; 87070; 87075; 87076; 87077; 87185; 87186; 87205; 88307; 94002; 94003; 94760; 94762; 96365; 97110; 97116; 97162; 97166; 97530; 97535; 99285-25; A9270; C1751; C9113; J0295; J1100; J1170; J1650; J1885; J1940; J2060; J2248; J2250; J2371; J2405; J2543; J2704; J2916; J3010; J3411; J7030; J7040; J7050; J7060; J7120; P9016; Q9967

== ENCOUNTER → 2024-11-06 | Outpatient (CLI) | payer OTHER ==
[~2024-11-06] MED LIST changes: +ACET500 PO; +BIRTH CONTROL; +DIPH50 PO; +FAMO20 PO; +IBUP600 PO; +OXAYDO5 M1 PO
[2024-11-06 19:46] LABS: Candida glabrata-krusei, PCR NOT DETECTED (NOT DETECT)
[2024-11-06 23:38] LABS: Bacterial Vaginosis PCR Positive (NEGATIVE); Candida Group, PCR DETECTED (NOT DETECT)
[2024-11-10 04:58] LABS: APTIMA MEDIA TYPE MultiTest Swab; C. TRACHOMATIS BY TMA Negative (Negative); N. GONORRHOEAE BY TMA Negative (Negative); T. VAGINALIS BY TMA Negative (Negative)
== END ==
LOC: LAB SHORT 15:07 → LAB 15:07
PROVIDERS: Family Medicine
DX: Z01.419 Encounter for gynecological examination (general) (routine) without abnormal findings (principal)
CPT/HCPCS: 81515; 87491; 87591; 87624; 87661; G0123